=== PATIENT | female | born 1980 | race Caucasian/White ===

== ENCOUNTER 2024-07-13 07:18 | Day surgery (SDC) | payer OTHER, SELFPAY ==
[2024-07-13] VITALS (13 sets, daily range): BP systolic 119–149; BP diastolic 74–99; PULSE 69–86; RESP 12–23; TEMP 36.4–36.6; O2SAT 95–98; BMI 32.2
--- OUTSIDE RECORDS SUMMARY | 2024-07-13 07:21 | XMS_ITS | Clinical Summary ---
Author Organization [facility] Address [place], [place] [address] Care Team Providers Care Benefits Counselor Name Role Phone Estrada Castañeda MD Primary Care Provider [phone] Allergies No known active allergies Medications Medication Sig Dispensed Refills Start Date End Date Status FISH OIL ORAL None Entered Active LEVONORGESTREL-ETH ESTRADIOL (AVIANE ORAL) Take by mouth. Active fluticasone, 50 mcg per actuation, nasal (FLONASE) 50 mcg/actuation nasal spray Inhale 2 Sprays into both nostrils once daily. 1 Bottle 0 04/01/2012 Active Social History Tobacco Use Types Packs/Day Years Used Date Smoking Tobacco: Former Alcohol Use Standard Drinks/Week Comments Not Asked 0 (1 standard drink = 0.6 oz pur e alcohol) Sex and Gender Information Value Date Recorded Sex Assigned at Not on file Gender Identity Not on file Sexual Orientation Not on file Obstetrics History Last Filed Vital Signs Vital Sign Reading Time Taken Comments Blood Pressure 152/94 04/01/2012 5:34 PM CDT Pulse 79 04/01/2012 5:34 PM CDT Temperature 36.7 ??C (98.1 ??F) 04/01/2012 5:34 PM CD T Respiratory Rate 18 04/01/2012 5:34 PM CDT Oxygen Saturation 99% 04/01/2012 5:34 PM CDT Inhaled Oxygen Concentration - - Weight 69.4 kg (153 lb) 04/01/2012 5:34 PM CDT Height 152.4 cm (5') 04/01/2012 5:34 PM CDT Body Mass Index 29.88 04/01/2012 5:34 PM CDT Plan of Treatment Not on file Care Teams Benefits Counselor Relationship Specialty Start Date End Date Estrada Castañeda MD [address] [place] [address] PCP - General 08/05/08
--- OUTSIDE RECORDS SUMMARY | 2024-07-13 07:21 | XMS_ITS | Referral Summary ---
Author Organization [facility] Address [address] [place] [address] Care Team Providers Care Printed Circuit Boards Pinner Name Role Phone Josue Romano MD Primary Care Provider + Allergies No known active allergies Medications Medication Sig Dispensed Refills Start Date End Date Status MULTI VIT/FL OR None Entered Active ibuprofen (ADVIL,MOTRIN) 600 MG tabletIndications:Tho n Take 1 tablet (600 mg) by mouth every 6 hours as needed for pain (mild) 30 tablet 0 08/12/2014 Active oxyCODONE-acetaminoph en (PERCOCET) 5-325 MG per tabletIndications:Tho n Take 1-2 tablets by mouth every 4 hours as needed for pain (moderate to severe) 30 tablet 0 08/12/2014 Active sucralfate (CARAFATE) 1 GM/10ML suspension Take 10 mLs (1 g) by mouth 4 times daily 414 mL 12/29/2023 Active Active Problems Problem Noted Date Diagnosed Date Cervicalgia 10/04/2007 Social History Tobacco Use Types Packs/Day Years Used Date Smoking Tobacco: Every Day Cigarettes 0.5 4 Tobacco Cessation:Ready to Q uit: Yes Alcohol Use Standard Drinks/Week Comments Yes 0 (1 standard drink = 0.6 oz pur e alcohol) 10 drinks monthly Adolescent Education Answer Date Record ed Getting School Help Needed Not on file 08/07 Sex and Gender Information Value Date Recorded Sex Assigned at Female 07/02/2020 9:54 AM CDT Gender Identity Female 07/02/2020 9:54 AM CDT Sexual Orientation Straight 07/02/2020 9: 54 AM CDT Last Filed Vital Signs Vital Sign Reading Time Taken Comments Blood Pressure 158/96 12/29/2023 11:07 AM HOUSEHOLD APPLIANCES SERVICE TECHNICIAN Pulse 70 12/29/2023 11:07 AM HOUSEHOLD APPLIANCES SERVICE TECHNICIAN Temperature 36.2 ??C (97.2 ??F) 12/29/2023 8:52 AM CS T Respiratory Rate 16 12/29/2023 11:07 AM HOUSEHOLD APPLIANCES SERVICE TECHNICIAN Oxygen Saturation 99% 12/29/2023 11:07 AM HOUSEHOLD APPLIANCES SERVICE TECHNICIAN Inhaled Oxygen Concentration - - Weight 66.7 kg (147 lb) 08/12/2014 8:21 AM CDT Height 152.4 cm (5') 08/12/2014 8:21 AM CDT Body Mass Index 28.71 08/12/2014 8:21 AM CDT Plan of Treatment Not on file Procedures Procedure Name Priority Date/Time Associated Diagnosis Comments BASIC METABOLIC PANEL STAT 12/29/2023 9:23 AM HOUSEHOLD APPLIANCES SERVICE TECHNICIAN MA SCREENING WITH IMPLANTS BILATERAL W/ LORNA Routine 11/09/2023 11:36 AM HOUSEHOLD APPLIANCES SERVICE TECHNICIAN Visit for screening mammogram from Last 3 Months or Most Recently Relevant to Health Maintenance Results * (ABNORMAL) Basic metabolic panel (BMP) (12/29/2023 9:23 AM HOUSEHOLD APPLIANCES SERVICE TECHNICIAN) Sodium 136 135 - 145 mmol/L 12/29/2023 10:08 AM [facility] Comment:Reference intervals for this test were updated on 07/26/2023 to more accurately reflect our healthy population. There may be differences in the flagging of prior results with similar values performed with this method. Interpretation of those prior results can be made in the context of the updated reference intervals. Potassium 4.4 3.4 - 5.3 mmol/L 12/29/2023 10:08 AM [facility] Chloride 101 98 - 107 mmol/L 12/29/2023 10:08 AM [facility] Carbon Dioxide (CO2) 23 22 - 29 mmol/L 12/29/2023 10:08 AM [facility] Anion Gap 12 7 - 15 mmol/L 12/29/2023 10:08 AM [facility] Urea Nitrogen 14.3 6.0 - 20.0 mg/dL 12/29/2023 10:08 AM [facility] Creatinine 0.91 0.51 - 0.95 mg/dL 12/29/2023 10:08 AM HOUSEHOLD APPLIANCES SERVICE TECHNICIAN LABORATORY GFR Estimate 79 >60 mL/min/1. 73m2 12/29/2023 10:08 AM HOUSEHOLD APPLIANCES SERVICE TECHNICIAN LAB[facility]ATORY Calcium 9.3 8.6 - 10.0 mg/dL 12/29/2023 10:08 AM HOUSEHOLD APPLIANCES SERVICE TECHNICIAN [facility] Glucose 108(H) 70 - 99 mg/dL 12/29/2023 10:08 AM HOUSEHOLD APPLIANCES SERVICE TECHNICIAN [facility] Blood STRUCTURE OF RIGHT UPPER LIMB / Unknown Venipuncture / Unknown 12/29/2023 9:23 AM HOUSEHOLD APPLIANCES SERVICE TECHNICIAN 12/29/2023 9:34 AM HOUSEHOLD APPLIANCES SERVICE TECHNICIAN Vito Alvarez MD LAB - BLOOD ORDE [facility] Organization Address City/State/ZIP Co de Phone Number LABORATORY [facility] [address] Lab (1st floor, no room number) [place] [address], [facility] [phone] * [place] Screen with Implants Bilateral w/Lorna (11/09/2023 11:36 AM HOUSEHOLD APPLIANCES SERVICE TECHNICIAN) Anatomical Region Laterality Modality Breast Bilateral Mammography Impressions 11/09/2023 3:49 PM HOUSEHOLD APPLIANCES SERVICE TECHNICIAN IMPRESSION: ACR BI-RADS Category 1: Negative RECOMMENDED FOLLOW-UP: Annual routine screening mammogram The results and recommendations of this examination will be communicated to the patient. Usama Avery MD Narrative 11/09/2023 3:49 PM HOUSEHOLD APPLIANCES SERVICE TECHNICIAN BILATERAL FULL FIELD DIGITAL SCREENING MAMMOGRAM WITH TOMOSYNTHESIS Performed on: 11/09/23 Compared to: 08/20/2022, 08/17/2021, and 07/21/2020 Technique: ??This study was evaluated with the assistance of Computer-Aided Detection. ??Breast Tomosynthesis was used in interpretation. Findings: The breasts are heterogeneously dense, which may obscure small masses. ??There is no radiographic evidence of malignancy. Josue Romano MD IMG MAMMOGRAPHY ORDERABLES from Last 3 Months or Most Recently Relevant to Health Maintenance Care Teams Printed Circuit Boards Pinner Relationship Specialty Start Date End Date Josue Romano MD [address] [place], [place] [id number] PCP - General fork lift technician 08/13/21
--- OUTSIDE RECORDS SUMMARY | 2024-07-13 07:21 | XMS_ITS | Clinical Summary ---
Author Organization [facility] Address [address] [place] [address] Care Team Providers Care Senior Housekeeper Name Role Phone Josue Romano MD Primary [...] Comments Blood Pressure 158/96 12/29/2023 11:07 AM LEAF STRIPPER Pulse 70 12/29/2023 11:07 AM LEAF STRIPPER Temperature 36.2 ??C (97.2 ??F) 12/29/2023 8:52 AM CS T Respiratory Rate 16 12/29/2023 11:07 AM LEAF STRIPPER Oxygen Saturation 99% 12/29/2023 11:07 AM LEAF STRIPPER Inhaled Oxygen Concentration - - Weight 66.7 kg (147 lb) 08/12/2014 8:21 AM CDT Height 152.4 cm (5') 08/12/2014 8:21 AM CDT Body Mass Index 28.71 08/12/2014 8:21 AM CDT Plan of Treatment Health Maintenance Due Date Last Done Comments ADVANCE CARE PLANNING 1978 ANNUAL REVIEW OF HM ORDERS 1978 CT COLONOGRAPHY 1978 FIT 1978 FLEX SIG 1978 YEARLY PREVENTIVE VISIT 1978 sDNA (Cologuard) 1978 Pneumococcal Vaccine: Pediatrics (0 to 5 Years) and At-Risk Patients (6 to 64 Years) (1 of 2 - PCV) 1984 COLONOSCOPY 1988 COLORECTAL CANCER SCREENING 1988 HIV SCREENING 1993 HEPATITIS C SCREENING 1996 HEPATITIS B IMMUNIZATION (1 of 3 - 19+ 3-dose series) 1997 PAP 1999 LIPID 2018 PHQ-2 (once per calendar year) 2023 COVID-19 Vaccine (3 - 2022- season) 2024 09/03/2021, 07/15/2021 INFLUENZA VACCINE (#1) 2024 08/27/2019 MAMMO SCREENING 11/09/2025 11/09/2023, 1010/2021, 08/17/2021, Additional history exists GLUCOSE 12/28/2026 12/29/2023 DTAP/TDAP/TD IMMUNIZATION (2 - Td or Tdap) 11/05/2032 11/05/2022 HPV IMMUNIZATION Aged Out No longer e ligible based on patient's age to complete this topic MENINGITIS IMMUNIZATION Aged Out No l onger eligible based on patient's age to complete this topic RSV MONOCLONAL ANTIBODY Aged Out No l onger eligible based on patient's age to complete this topic Procedures Procedure Name Priority Date/Time Associated Diagnosis Comments BASIC METABOLIC PANEL STAT 12/29/2023 9:23 AM LEAF STRIPPER MA SCREENING WITH IMPLANTS BILATERAL W/ LORNA Routine 11/09/2023 11:36 AM LEAF STRIPPER Visit for screening mammogram from Last 3 Months or Most Recently Relevant to Health Maintenance Results * (ABNORMAL) Basic metabolic panel (BMP) (12/29/2023 9:23 AM LEAF STRIPPER) Sodium 136 135 - 145 mmol/L 12/29/2023 10:08 AM [facility] Comment:Reference intervals for this test were updated on 07/26/2023 to more accurately reflect our healthy population. There may be differences in the flagging of prior results with similar values performed with this method. Interpretation of those prior results can be made in the context of the updated reference intervals. Potassium 4.4 3.4 - 5.3 mmol/L 12/29/2023 10:08 AM [facility] Chloride 101 98 - 107 mmol/L 12/29/2023 10:08 AM [facility] Carbon Dioxide (CO2) 23 22 - 29 mmol/L 12/29/2023 10:08 AM [facility] Anion Gap 12 7 - 15 mmol/L 12/29/2023 10:08 AM [facility] Urea Nitrogen 14.3 6.0 - 20.0 mg/dL 12/29/2023 10:08 AM [facility] Creatinine 0.91 0.51 - 0.95 mg/dL 12/29/2023 10:08 AM [facility] GFR Estimate 79 >60 mL/min/1. 73m2 12/29/2023 10:08 AM [facility] Calcium 9.3 8.6 - 10.0 mg/dL 12/29/2023 10:08 AM [facility] Glucose 108(H) 70 - 99 mg/dL 12/29/2023 10:08 AM [facility] Blood STRUCTURE OF RIGHT UPPER LIMB / Unknown Venipuncture / Unknown 12/29/2023 9:23 AM LEAF STRIPPER 12/29/2023 9:34 AM [facility] Vito Alvarez MD LAB - BLOOD AXEL REYES [facility] [address] [facility] Lab (1st floor, no room number) [place] [address], [facility] [phone] * [place] Screen with Implants Bilateral w/Lorna (11/09/2023 11:36 AM LEAF STRIPPER) Anatomical Region Laterality Modality Breast Bilateral Mammography Impressions 11/09/2023 3:49 PM LEAF STRIPPER IMPRESSION: ACR BI-RADS Category 1: Negative RECOMMENDED FOLLOW-UP: Annual routine screening mammogram The results and recommendations of this examination will be communicated to the patient. Usama Avery MD Narrative 11/09/2023 3:49 PM LEAF STRIPPER BILATERAL FULL FIELD DIGITAL SCREENING MAMMOGRAM WITH [...] Recently Relevant to Health Maintenance Care Teams Senior Housekeeper Relationship Specialty Start Date End Date Josue Romano MD [address] [place] [address] PCP - General materials planning manager 08/13/21
[2024-07-13] MEDS: OXYMETAZOLINE 0.05% NASAL SPRAY 2 SPRAY NOSTRIL-B (08:15)
[2024-07-13] MEDS: LACTATED RINGERS 1000 ML 1,000 ML 100 ML IV (08:29)
[2024-07-13] MEDS: SODIUM CHLORIDE 0.9 % (FLUSH) 10 ML SYRINGE IVF (08:29)
[2024-07-13] MEDS: BUPIVACAINE 0.5 %/EPI 1:200K 30 ML INJECTION (09:08)
[2024-07-13] MEDS: MUPIROCIN 1 GM PACKET 1 APPLIC TOPICAL (09:08)
[2024-07-13] MEDS: COCAINE HCL 4 % 4 ML SOLUTION NOSTRIL-B (09:08)
[2024-07-13] MEDS: AYR SALINE NASAL GEL 1 APPLIC NOSTRIL-B (09:10)
--- NOTE | 2024-07-13 09:30 | W.ANESCHARGE ---
Anesthesia Charges Start Date/Time Anesthesia Start Date: 07/13/24 Anesthesia Start Time: 08:47 Stop Date/Time Anesthesia Stop Date: 07/13/24 Anesthesia Stop Time: 09:31
--- NOTE | 2024-07-13 09:53 | SUR.PHASEI ---
Offered pain medication thru the IV, she asked if it will make her sleepy, I said it can. She chose to wait and take something orally in SDS.
--- NOTE | 2024-07-13 09:57 | SUR.PHASEI ---
Patient awake and talking. No drainage on nasal dressing. Patient meets discharge criteria from PACU.
--- NOTE | 2024-07-13 10:01 | W.ANESCHARGE ---
Anesthesia Charges Start Date/Time Anesthesia Start Date: 07/13/24 Anesthesia Start Time: 08:47 Stop Date/Time Anesthesia Stop Date: 07/13/24 Anesthesia Stop Time: 09:31
--- NOTE | 2024-07-13 10:10 | P.ENTPROC_ITS ---
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 A hemitransfixion incision was made in the right son from the right side and left anterior tunnel created. An incision was made through the cartilage and a right anterior and posterior tunnels were created. The posterior deflected portions of septal bone were resected and a lot of single piece was trimmed returned to intraseptal space. The hemitransfixion was closed with 2 4-0 chromic sutures. A stab incision was made the anterior head of the left inferior turbinate a tunnel created with a [place] dissector. A conservative anterior submucous resection was performed and the Coblation Wand used for hemostasis. This was repeated on the right side identical fashion. The remaining dura the procedure was done with the assistance of 0 degree endoscopes and image guidance. On the right side the inferior quarter of the uncinate process was taken down exposing natural ostium to maxillary sinus. This was occluded by polypoid tissue which was removed and the opening enlarged to 9 mm. Some polypoid mucosa was removed from the floor of the sinus. This was repeated on the left side in identical fashion with identical findings. Additionally the left ethmoid bulla was taken down and dissection carried out in an anterior to posterior direction to perform a complete ethmoidectomy. A moderate amount of polypoid tissue was removed as consistent with CT scan findings. Silastic stents were secured with 3-0 nylon and Merocel packing placed in the middle meatus on each side. The patient procedure well was taken recovery in satisfactory condition. Blood loss was less than 20 mL. Surgeon: Brendan Carrillo MD
[2024-07-13] MEDS: ACETAMINOPHEN 325 MG TABLET PO (10:38)
[2024-07-13] MEDS: OXYCODONE 5 MG TABLET PO (10:38)
== END 2024-07-13 11:15 | disposition home or self-care (01) ==
PROVIDERS: PCP Family Medicine; Visit Provider Otolaryngology
PROC: (CPT 31231; principal; 2024-07-13 08:30)
DX: J34.2 Deviated nasal septum (principal); J32.2 Chronic ethmoidal sinusitis; J32.0 Chronic maxillary sinusitis; J34.3 Hypertrophy of nasal turbinates; J34.89 Other specified disorders of nose and nasal sinuses; R51.9 Headache, unspecified
CPT/HCPCS: 30520; 30140; 31255; 31267; 00160; 88305; A9270; J0330; J1100; J2405; J2704; J3010; J3490; J7120